=== PATIENT | male | born 1975 | race Caucasian/White ===

== ENCOUNTER 2019-12-02 10:04 | Emergency (ER) | payer BC ==
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
[2019-12-02 11:01] VITALS: BP 145/101
== END 2019-12-02 11:01 | disposition home or self-care (01) ==
LOC: ED 10:04
DX: S79.921A Unspecified injury of right thigh, initial encounter (principal); W19.XXXA Unspecified fall, initial encounter; Y93.89 Activity, other specified; Y92.89 Other specified places as the place of occurrence of the external cause
CPT/HCPCS: 99281

== ENCOUNTER 2020-03-07 14:52 | Emergency (ER) | payer BC, OTHER ==
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
[2020-03-07] MEDS ORDERED: NS 0.9% 1000 ML** 2,000 ML IV ONE (15:42)
[2020-03-07] MEDS ORDERED: Ondansetron INJ* 2 MG/ML VIAL IV ONE (15:44)
[2020-03-07 16:18] LABS: ABS Lymphocytes 1.1 10^3/ul (1.0-4.8); ABS Monocytes 0.5 10^3/ul (0-0.8); ABS Neutrophils 3.8 10^3/ul (1.5-7.7); Eosinophil % 0.5 %; Hematocrit 44 % (42-52); Hemoglobin 15.6 g/dL (14.0-18.0); Lymphocyte % 19.9 %; Mean Corpuscular HGB Conc 36 g/dL (31-36); Mean Corpuscular Hemoglobin 33 pg (27-31); Mean Corpuscular Volume 91 fL (80-94); Mean Platelet Volume 8.4 fL (7.4-10.4); Nucleated Red Blood Cells % 0.2; Platelet Count 116 10^3/uL (150-450); Red Blood Count 4.77 10^6 /uL (4.18-5.48); Red Cell Distribution Width 13 % (10-15); White Blood Count 5.4 10^3/uL (3.5-10.8)
[2020-03-07 16:29] LABS: ALT 20 U/L (7-52); AST 36 U/L (13-39); Albumin 4.8 g/dL (3.2-5.2); Albumin/Globulin Ratio 1.6 (1-3); Alkaline Phosphatase 56 U/L (34-104); Anion Gap 10 mmol/L (2-11); BUN/Creatinine Ratio 18.2 (8-20); Blood Urea Nitrogen 12 mg/dL (6-24); C Reactive Protein < 1.00 mg/L (<8.01); CO2 Carbon Dioxide 27 mmol/L (22-32); Chloride 100 mmol/L (101-111); EGFR African American 159.4 (>60); EGFR Non-African American 131.7 (>60); Glucose 135 mg/dL (70-100); Potassium 3.3 mmol/L (3.5-5.0); Sodium 137 mmol/L (135-145); Total Protein 7.8 g/dL (6.4-8.9)
[2020-03-07 17:13] LABS: Urine Appearance Cloudy; Urine Bilirubin Negative (Negative); Urine Blood Negative (Negative); Urine Color Amber; Urine Glucose 1+(50 mg/dL) (Negative); Urine Ketones Negative (Negative); Urine Nitrite Negative (Negative); Urine Protein 1+(30 mg/dL) (Negative); Urine Specific Gravity 1.017 (1.010-1.030); Urine Urobilinogen Negative (Negative)
[2020-03-07 17:18] LABS: Urine Bacteria Absent (Absent); Urine Red Blood Cell Absent (Absent); Urine White Blood Cell Absent (Absent)
[2020-03-07] MEDS ORDERED: NS 0.9% 1000 ML** 1,000 ML IV ONE (18:57)
[2020-03-07 21:00] VITALS: BP 145/98
== END 2020-03-07 20:28 | disposition home or self-care (01) ==
LOC: ED 14:52
DX: K52.9 Noninfective gastroenteritis and colitis, unspecified (principal); E86.1 Hypovolemia; R11.2 Nausea with vomiting, unspecified; Z20.828 Contact with and (suspected) exposure to other viral communicable diseases
CPT/HCPCS: 36415; 74018; 80053; 81003; 81015; 83605; 83690; 85025; 86140; 87635; 96361; 96374; 99283; J2405; U0003

== ENCOUNTER 2020-06-13 13:20 | Inpatient (IN) ==
[2020-06-13] MEDS ORDERED: NS 0.9% 1000 ml BAG 1,000 ML IV ONE (14:01)
[2020-06-13 14:41] LABS: ABS Basophils 0.1 10^3/ul (0-0.2); ABS Eosinophils 0.1 10^3/ul (0-0.6); ABS Lymphocytes 1.9 10^3/ul (1.0-4.8); ABS Monocytes 0.3 10^3/ul (0-0.8); Eosinophil % 1.7 %; Hematocrit 37 % (42-52); Hemoglobin 13.3 g/dL (14.0-18.0); Lymphocyte % 42.7 %; Mean Corpuscular HGB Conc 36 g/dL (31-36); Mean Corpuscular Hemoglobin 35 pg (27-31); Mean Corpuscular Volume 97 fL (80-94); Mean Platelet Volume 10.9 fL (7.4-10.4); Nucleated Red Blood Cells % 0.2; Platelet Count 120 10^3/uL (150-450); Red Blood Count 3.76 10^6 /uL (4.18-5.48); Red Cell Distribution Width 15 % (10-15); White Blood Count 4.5 10^3/uL (3.5-10.8)
[2020-06-13 15:37] LABS: BUN/Creatinine Ratio 7.8 (8-20); Blood Urea Nitrogen 8 mg/dL (6-24); CO2 Carbon Dioxide 18 mmol/L (22-32); Chloride 96 mmol/L (101-111); EGFR Non-African American 79.3 (>60); Sodium 121 mmol/L (135-145)
[2020-06-13 15:38] LABS: ALT 80 U/L (7-52); Alkaline Phosphatase 45 U/L (34-104); Glucose 81 mg/dL (70-100)
[2020-06-13 15:39] LABS: Albumin 5.2 g/dL (3.2-5.2); Albumin/Globulin Ratio 1.3 (1-3); Anion Gap 7 mmol/L (2-11); Calcium 8.6 mg/dL (8.6-10.3); Magnesium 3.3 mg/dL (1.9-2.7); Total Protein 9.2 g/dL (6.4-8.9)
[2020-06-13] MEDS ORDERED: Iohexol 300 (CONTRAST) 10 ML SDV IV ONE (15:45)
[2020-06-13 17:05] LABS: Triglycerides 1515 mg/dL
[2020-06-13] MEDS ORDERED: Insulin Infusion 100unit/100mL 100 UNIT/100 ML BAG IV SCH (18:00)
[2020-06-13] MEDS ORDERED: LORazepam 2 mg VIAL 1 ml IV PUSH SCH (18:00)
[2020-06-13] MEDS: D10W 1000 ml BAG 1,000 ML IV SCH (18:58)
[2020-06-13] MEDS ORDERED: Gemfibrozil 600 mg PO SCH (21:00)
[2020-06-14 04:29] LABS: INR 0.98 (0.82-1.09)
[2020-06-14 04:39] LABS: Albumin 3.2 g/dL (3.2-5.2); Albumin/Globulin Ratio 1.1 (1-3); BUN/Creatinine Ratio 7.8 (8-20); Calcium 7.8 mg/dL (8.6-10.3); EGFR African American 164.4 (>60); EGFR Non-African American 135.9 (>60); Total Bilirubin 1.2 mg/dL (0.2-1.0); Total Protein 6.2 g/dL (6.4-8.9)
[2020-06-14 04:49] LABS: ABS Eosinophils 0.1 10^3/ul (0-0.6); ABS Lymphocytes 1.8 10^3/ul (1.0-4.8); ABS Monocytes 0.3 10^3/ul (0-0.8); Eosinophil % 2.5 %; Hematocrit 31 % (42-52); Hemoglobin 11.1 g/dL (14.0-18.0); Lymphocyte % 46.5 %; Mean Corpuscular HGB Conc 36 g/dL (31-36); Mean Corpuscular Hemoglobin 34 pg (27-31); Mean Corpuscular Volume 96 fL (80-94); Nucleated Red Blood Cells % 0.4; Red Blood Count 3.22 10^6 /uL (4.18-5.48); Red Cell Distribution Width 14 % (10-15); White Blood Count 3.8 10^3/uL (3.5-10.8)
[2020-06-14 05:08] LABS: Potassium 3.3 mmol/L (3.5-5.0)
[2020-06-14] MEDS: D10W 1000 ml BAG 1,000 ML IV SCH ×2 (05:13→15:00)
[2020-06-14 05:21] LABS: Platelet Count 75 10^3/uL (150-450)
[2020-06-14] MEDS: CMC:OMEGA-3 FATTY ACID 1000 mg(NF) PO SCH ×2 (08:59→17:11)
[2020-06-14] MEDS: NIACIN 500 MG PO SCH (08:59)
[2020-06-14] MEDS: Multivitamins/Minerals TAB PO SCH (08:59)
[2020-06-14 10:02] LABS: Magnesium 1.6 mg/dL (1.9-2.7)
[2020-06-14] MEDS: Potassium Chlor 20 meq TAB.ER PO SCH ×2 (10:59→14:17)
[2020-06-14] MEDS ORDERED: Magnesium Sulf 4 GM/100 ML IV 4,000 MG/100 ML BAG IVPB ONE (19:01)
[2020-06-14 20:42] LABS: ALT 46 U/L (7-52); Albumin 3.2 g/dL (3.2-5.2); Albumin/Globulin Ratio 1.1 (1-3); Alkaline Phosphatase 69 U/L (34-104); BUN/Creatinine Ratio 5.2 (8-20); Blood Urea Nitrogen 3 mg/dL (6-24); CO2 Carbon Dioxide 25 mmol/L (22-32); Calcium 8.7 mg/dL (8.6-10.3); Chloride 104 mmol/L (101-111); EGFR African American 184.2 (>60); EGFR Non-African American 152.2 (>60); Globulin 2.9 g/dL (2-4); Glucose 177 mg/dL (70-100); Sodium 133 mmol/L (135-145); Total Protein 6.1 g/dL (6.4-8.9); Triglycerides 369 mg/dL
[2020-06-14 20:47] LABS: Anion Gap 4 mmol/L (2-11)
[2020-06-15 05:53] LABS: Hematocrit 34 % (42-52); Hemoglobin 11.9 g/dL (14.0-18.0); Mean Corpuscular HGB Conc 35 g/dL (31-36); Mean Corpuscular Hemoglobin 34 pg (27-31); Mean Corpuscular Volume 98 fL (80-94); Mean Platelet Volume 9.8 fL (7.4-10.4); Platelet Count 85 10^3/uL (150-450); Red Blood Count 3.46 10^6 /uL (4.18-5.48); Red Cell Distribution Width 14 % (10-15); White Blood Count 3.5 10^3/uL (3.5-10.8)
[2020-06-15 06:06] LABS: BUN/Creatinine Ratio 4.4 (8-20); Calcium 8.8 mg/dL (8.6-10.3); EGFR African American 153.3 (>60); EGFR Non-African American 126.7 (>60)
[2020-06-15 07:05] LABS: Potassium 4.4 mmol/L (3.5-5.0)
[2020-06-15] MEDS: CMC:OMEGA-3 FATTY ACID 1000 mg(NF) PO SCH ×2 (08:23→17:48)
[2020-06-15] MEDS: Multivitamins/Minerals TAB PO SCH (08:23)
[2020-06-15] MEDS: NIACIN 500 MG PO SCH (08:23)
[2020-06-16] MEDS: Multivitamins/Minerals TAB PO SCH (07:16)
[2020-06-16] MEDS: CMC:OMEGA-3 FATTY ACID 1000 mg(NF) PO SCH (07:16)
[2020-06-16 08:21] VITALS: BP 122/89
[2020-06-16] MEDS: NIACIN 500 MG PO SCH (09:33)
[2020-06-18 15:54] LABS: Free T4 0.9 ng/dL (0.9 - 1.7)
[2020-06-19 08:37] LABS: Thyroperoxidase Antibody 0.4 IU/mL (<9.0)
== END 2020-06-16 09:55 | disposition home or self-care (01) | DRG 423 ==
LOC: ED 13:20 → ICU 17:10 → MED 06-15 09:20
PROVIDERS: ADMIT Internal Medicine; ATTEND Internal Medicine